=== PATIENT | female | born 1990 | race African-American/Black ===

== ENCOUNTER 2017-02-05 20:00 | Emergency (ER) | payer MEDICAID ==
[~2017-02-05] VITALS: Ht 160 cm; Wt 48.0 kg
[2017-02-05 20:17] VITALS: BP 104/67
[2017-02-05] MEDS ORDERED: KETOROLAC 60MG/2ML VIAL IM ONE (21:15)
== END 2017-02-05 22:07 | disposition home or self-care (01) ==
LOC: ER 20:06
DX: S46.912A Strain of unspecified muscle, fascia and tendon at shoulder and upper arm level, left arm, initial encounter (principal); X58.XXXA Exposure to other specified factors, initial encounter; Y93.89 Activity, other specified; Y92.89 Other specified places as the place of occurrence of the external cause; Y99.8 Other external cause status
CPT/HCPCS: 81025; 96372; 99283; J1885; Z7610